=== PATIENT | female | born 1950 | race Caucasian/White ===

== ENCOUNTER 2020-02-13 10:10 | Outpatient (CLI) | payer MEDICARE, SELFPAY ==
--- NOTE | ~2020-02-13 | MM_ITS ---
EXAMINATION: MM screening araceli BI w baldemar HISTORY: Screening mammogram, family history of breast cancer in her sister. TECHNIQUE: Craniocaudal and mediolateral oblique 3-D tomosynthesis images were obtained and synthetic 2-D images were generated. CAD analysis was submitted and interpreted. COMPARISON: 12/19/2018, 12/18/2017, 08/18/2005 BREAST PARENCHYMAL COMPOSITION: The breasts are extremely dense, which lowers the sensitivity of mamm ography. FINDINGS: Scattered benign-appearing calcifications are present. There is no evidence of suspicious m ass, calcification, or architectural distortion to suggest malignancy in either breast. There has bee n no suspicious interval change. IMPRESSION: 1. No mammographic evidence of malignancy. 2. Recommend routine screening mammography in one year. BI-RADS Category 2: Benign finding(s). Reviewed, dictated and finalized at location A. IC PROFESSOR
== END 2020-02-13 10:11 | disposition home or self-care (01) ==
PROVIDERS: PCP Family Medicine; Visit Provider Physician Assistant
DX: Z12.31 Encounter for screening mammogram for malignant neoplasm of breast (principal)
CPT/HCPCS: 77063; 77067

== ENCOUNTER 2021-03-14 10:03 | Outpatient (CLI) | payer MEDICARE, SELFPAY ==
--- NOTE | ~2021-03-14 | MM_ITS ---
EXAMINATION: MM screening araceli BI w baldemar HISTORY: Screening mammogram, family history of breast cancer in her sister. TECHNIQUE: Craniocaudal and mediolateral oblique 3-D tomosynthesis images were obtained and synthetic 2-D images were generated. CAD analysis was submitted and interpreted. COMPARISON: 02/13/2020, 12/19/2018, 12/18/2017 BREAST PARENCHYMAL COMPOSITION: The breasts are extremely dense, which lowers the sensitivity of mamm ography. FINDINGS: There is no evidence of suspicious mass, calcification, or architectural distortion to sugg est malignancy in either breast. There has been no suspicious interval change. IMPRESSION: 1. No mammographic evidence of malignancy. 2. Recommend routine screening mammography in one year. BI-RADS Category 1: Negative Reviewed, dictated and finalized at location A. PRESS OPERATOR
== END 2021-03-14 10:04 | disposition home or self-care (01) ==
LOC: ANHIMG 10:04
PROVIDERS: PCP Family Medicine; Visit Provider Physician Assistant
DX: Z12.31 Encounter for screening mammogram for malignant neoplasm of breast (principal)
CPT/HCPCS: 77063; 77067

== ENCOUNTER 2021-07-25 10:01 | Outpatient (CLI) | payer MEDICARE, SELFPAY ==
--- NOTE | 2021-07-25 10:23 | ECG_ITS ---
Measurements Intervals [place] Rate: 68 P: 19 KS: 111 QRS: 7 QRSD: 78 T: 29 QT: 404 QTc: 430 Interpretive Statements SINUS RHYTHM WITH SINUS ARRHYTHMIA LOW QRS VOLTAGE IN PRECORDIAL LEADS [QRS DEFLECTION < 1.0 mV IN CHEST LEADS] POSSIBLE RIGHT VENTRICULAR CONDUCTION DELAY [RSR (QR) IN V1/V2] CANNOT RULE OUT SEPTAL MYOCARDIAL INFARCTION , OLD [40+ ms Q WAVE IN V1/V2] NO PREVIOUS ECG AVAILABLE FOR COMPARISON Electronically Signed On 07-25-2021 16:25:19 CDT by Berto Canas M.D.
== END 2021-07-25 10:02 | disposition home or self-care (01) ==
PROVIDERS: PCP Family Medicine; Visit Provider Physician Assistant Medical
DX: R42 Dizziness and giddiness (principal); R94.31 Abnormal electrocardiogram [ECG] [EKG]
CPT/HCPCS: 93005

== ENCOUNTER 2021-08-24 07:42 | Outpatient (CLI) | payer MEDICARE, SELFPAY ==
--- NOTE | 2021-08-24 07:51 | ECHO_ITS ---
Patient Info Name: Irene Jaramillo Age: 71 years : 1950 Gender: Female Ht: 62 in Wt: 106 lbs BSA: 1.45 m2 HR: 81 bpm BP: 121 / 73 mmHg Technical Quality: Good Exam Date: 08/24/2021 8:18 AM Exam Location: [facility] Patient Status: Outpatient Admit Date: 08/24/2021 Staff Ordering Physician: Nicol Wilson Icu Staff Nurse: Hamzah Parr RDCS, RT Attending Provider: Nicol Wilson Referring Physician: Katie RAMOS; Exam Type: CA echo doppler color flow Study Info Indications R42 - Dizziness and giddiness Complete two-dimensional, color flow and Doppler transthoracic echocardiogram is performed. Strain analysis performed. Summary 1. Complete two-dimensional, color flow and Doppler transthoracic echocardiogram is performed. 2. Left ventricular chamber dimension is normal. 3. Left ventricular systolic function is hyperdynamic, estimated at >70%. 4. The left ventricular diastolic function is normal. 5. E/e' 9 is minimally elevated. 6. Global longitudinal strain is normal at - 22.6%. 7. There is mild aortic valve sclerosis. Left Ventricle E/e' 9 is minimally elevated. Global longitudinal strain is normal at - 22.6%. Left ventricular chamber dimension is normal. Left ventricular systolic function is hyperdynamic, estimated at >70%. The left ventricular diastolic function is normal. Right Ventricle Right ventricular systolic function is normal and with normal TAPSE 2.5 cm. Right ventricular chamber dimension is normal. Left Atria Left atrial chamber dimension is normal. Right Atria Right atrial chamber dimension is normal. Aortic Valve The aortic valve is trileaflet. There is mild aortic valve sclerosis. There is no aortic valve stenosis. There is no aortic valve regurgitation. Pulmonic Valve There is no pulmonic regurgitation. Mitral Valve There is no mitral valve stenosis. There is no mitral valve regurgitation. Tricuspid Valve There is no tricuspid valve regurgitation. Pericardium/Pleural There is no pericardial effusion. Inferior Vena Cava Normal inferior vena cava with >50% collapse upon inspiration consistent with normal right atrial pressure, 5 mmHg. Aorta The aortic root size at the sinus of Valsalva is normal. Left Ventricular Outflow Tract Name Value Normal LVOT 2D LVOT Diameter 1.9 cm LVOT Doppler LVOT Peak Gradient 6 mmHg LVOT Mean Gradient 3 mmHg LVOT VTI 25 cm LVOT VTI/AV VTI Ratio 0.9 LVOT Stroke Volume 70 ml LVOT CO 4.5 l/min LVOT CI 3.1 l/min/m2 Mitral Valve Name Value Normal MV Doppler MV Decel Baker 602 cm/s2 MV PHT
== END 2021-08-24 07:43 | disposition home or self-care (01) ==
PROVIDERS: PCP Family Medicine; Visit Provider Physician Assistant Medical
DX: R94.31 Abnormal electrocardiogram [ECG] [EKG] (principal); R42 Dizziness and giddiness
CPT/HCPCS: 93306

== ENCOUNTER 2022-04-19 09:56 | Outpatient (CLI) | payer MEDICARE, SELFPAY ==
--- NOTE | ~2022-04-19 | MM_ITS ---
EXAMINATION: MM screening araceli BI w baldemar HISTORY: Screening mammogram, family history of breast cancer in her sister. TECHNIQUE: Craniocaudal and mediolateral oblique 3-D tomosynthesis images were obtained and synthetic 2-D images were generated. CAD analysis was submitted and interpreted. COMPARISON: 04/01/2021, 02/13/2020, 919 BREAST PARENCHYMAL COMPOSITION: The breasts are extremely dense, which lowers the sensitivity of mamm ography. FINDINGS: No suspicious mass, calcification, or architectural distortion are identified in either joshua ast to suggest malignancy. There has been no suspicious interval change. IMPRESSION: 1. No mammographic evidence of malignancy. 2. Recommend routine screening mammography in one year. BI-RADS Category 1: Negative Reviewed, dictated and finalized at location A. MS ACCOUNT SPECIALIST
== END 2022-04-19 09:57 | disposition home or self-care (01) ==
LOC: ANHIMG 09:57
PROVIDERS: PCP Family Medicine; Visit Provider Physician Assistant
DX: Z12.31 Encounter for screening mammogram for malignant neoplasm of breast (principal)
CPT/HCPCS: 77063; 77067

== ENCOUNTER 2023-06-12 08:54 | Outpatient (CLI) | payer MEDICARE, SELFPAY ==
--- NOTE | ~2023-06-12 | MM_ITS ---
EXAMINATION: MM screening araceli BI w baldemar HISTORY: Screening mammogram TECHNIQUE: Craniocaudal and mediolateral oblique 3-D tomosynthesis images were obtained and synthetic 2-D images were generated. CAD analysis was submitted and interpreted. COMPARISON: 04/19/2022, 03/14/2021, 02/13/2020 bilateral screening mammogram examinations BREAST PARENCHYMAL COMPOSITION: The breasts are extremely dense, which lowers the sensitivity of mamm ography. FINDINGS: There is no evidence of suspicious mass, calcification, or architectural distortion to sugg est malignancy in either breast. There has been no suspicious interval change. IMPRESSION: 1. No mammographic evidence of malignancy. 2. Recommend routine screening mammography in one year. BI-RADS Category 1: Negative Reviewed, dictated and finalized at location A.
== END 2023-06-12 08:55 | disposition home or self-care (01) ==
PROVIDERS: PCP Family Medicine; Visit Provider Family Medicine
DX: Z12.31 Encounter for screening mammogram for malignant neoplasm of breast (principal)
CPT/HCPCS: 77063; 77067

== ENCOUNTER 2024-06-17 09:57 | Outpatient (CLI) | payer MEDICARE, SELFPAY ==
--- NOTE | ~2024-06-17 | MM_ITS ---
EXAMINATION: MM screening araceli BI w baldemar HISTORY: Screening TECHNIQUE: Craniocaudal and mediolateral oblique 3-D tomosynthesis images were obtained and synthetic 2-D images were generated. CAD analysis was submitted and interpreted. COMPARISON: Comparison to multiple prior studies sequentially, with oldest reviewed study dated 12/18. BREAST PARENCHYMAL COMPOSITION: Dense: The breasts are extremely dense, which lowers the sensitivity of mammography. FINDINGS: There is no evidence of suspicious mass, calcification, or architectural distortion to sugg est malignancy in either breast. There has been no suspicious interval change. Due to extreme density of both breasts, correlation with bilateral complete breast ultrasound. IMPRESSION: 1. No mammographic evidence of malignancy although examination is limited due to extreme density of t he breasts. Consider correlation with bilateral breast ultrasound.. 2. Recommend routine screening mammography in one year. BI-RADS Category 1: Negative Reviewed, dictated and finalized at location B. IMPRESSION: 1. No mammographic evidence of malignancy although examination is limited due t o extreme density of the breasts. Consider correlation with bilateral breast ul trasound.. 2. Recommend routine screening mammography in one year. BI-RADS Category 1: Negative
--- OUTSIDE RECORDS SUMMARY | 2024-06-17 11:04 | XMS_ITS | Clinical Summary ---
Author Organization [facility] Address [address] [place] [address] Care Team Providers Care Interior Specialist Name Role Phone Unavailable Primary Care Provider Unavailabl e Allergies No known active allergies Medications brimonidine (ALPHAGAN) 0.2 % solution INSTILL ONE DROP IN BOTH EYES TWICE DAILY 15 mL 4 05/09/2024 8:53 AM SURG TECH 4 Active cycloSPORINE (RESTASIS) 0.05 % emulsion Instill one drop into both eyes twice a day. 60 Each 11 05/07/2024 8:56 AM SURG TECH 4 Active timoloL maleate (TIMOPTIC) 0.5% solution Administer 1 drop in both eyes twice daily 15 mL 4 05/10/2024 8:19 AM SURG TECH 4 Active Encounters Date Type Department Care Team Description 06/07/2024 External Device Data [facility] ABSTRACTION Provider, Abstract 06/06/2024 External Device Data [facility] ABSTRACTION Provider, Abstract 06/03/2024 External Device Data [facility] ABSTRACTION Provider, Abstract 05/20/2024 External Device Data [facility] ABSTRACTION Provider, Abstract 04/24/2024 External Device Data [facility] ABSTRACTION Provider, Abstract 04/23/2024 External Device Data [facility] ABSTRACTION Provider, Abstract 04/22/2024 External Device Data [facility] ABSTRACTION Provider, Abstract 04/15/2024 External Device Data [facility] ABSTRACTION Provider, Abstract from Last 3 Months Immunizations Immunization Administration Dates Next Due (COMIRNATY)(12 YR UP) COVID- 19 VACCINE, MRNA, SPIKE PROTEIN, LNP, LILIANA(PF) 30 MCG/0.3 ML IM SUSP 01/17/2024 INFLUENZA VACCINE HIGH DOSE TRIVALENT SPLIT VIRUS, (65 YR UP), 0.5ML (PF), IM 01/03/2024 Social History Tobacco Use Types Packs/Day Years Used Date Smoking Tobacco: Never Assessed Comments Unknown Sex and Gender Information Value Date Recorded Sex Assigned at Not on file Legal Sex Female 8:58 AM CDT Gender Identity Not on file Sexual Orientation Not on file Plan of Treatment Health Maintenance Due Date Last Done Comments DTAP/TDAP/TD VACCINES (1 - Tdap) 1970 BREAST CANCER SCREENING 1991 COLORECTAL SCREENING 01/05/1996 Colorectal Cancer Screening 01/05/1996 FIT-DNA Q 3 years 01/05/1996 FIT/FOBT Q 1 year 01/05/1996 Flex Sig/CT Colonography Q 5 years 01/05/1996 PNEUMOCOCCAL VACCINE 50+ YEARS (1 of 1 - PCV) 01/05/20 01 ZOSTER VACCINE (1 of 2) 2001 OSTEOPOROSIS SCREENING 01/05/2016 COVID-19 Vaccine (2 - season) 2024 RSV VACCINE (60+ or ) (1 - 1-dose 75+ series) 2026 INFLUENZA VACCINE Completed 01/03/2024 Insurance RX [employer] Medicare Part D
== END 2024-06-17 09:58 | disposition home or self-care (01) ==
LOC: ANHIMG 09:58
PROVIDERS: PCP Family Medicine; Visit Provider Family Medicine
DX: Z12.31 Encounter for screening mammogram for malignant neoplasm of breast (principal)
CPT/HCPCS: 77063; 77067